=== PATIENT | female | born 1985 | race American Indian/Alaskan Native ===

== ENCOUNTER 2017-01-08 21:53 | Emergency (ER) | payer BC, OTHER ==
[2017-01-08 22:15] VITALS: BP 112/67; PULSE 85; TEMP 98.3; BMI 28.3
[2017-01-08] MEDS ORDERED: IBUPROFEN 400 MG TABLET (FP) PO ONE ×2 (23:19→23:24)
--- NOTE | 2017-01-09 00:21 | PDOC ---
History of Present Illness - General Chief Complaint: Cold Symptoms Stated Complaint: FEVER Time Seen by Provider: 01/08/17 22:33 History Source: Patient Exam Limitations: No Limitations - History of Present Illness Initial Comments: 01/09/17 00:17 Pt. is a 31 y/o female, no PMH who presents to the ED with 3-4 days of cough and sore throat. Patient states that she has not had fevers with this. Denies ear pain. She admits there is a drip down her throat. Her daughter who is 7mo old presents to the ED tonight with similar viral syndromes. Denies weakness, chills, chest pain, shortness of breath, difficulty breathing, nausea, vomiting , diarrhea, frequency, urgency and hematuria. Past History - Travel Traveled outside of the country in the last 30 days: No Close contact w/someone who was outside of country & ill: No - Past Medical History Allergies/Adverse Reactions: Allergies Allergy/AdvReac Type Severity Reaction Status Date / Time No Known Allergies Allergy Verified 01/08/17 22:15 Home Medications: Ambulatory Orders NK [No Known Home Medication] 01/08/17 - Immunization History Immunization Up to Date: Yes - Suicide/Smoking/Psychosocial Hx Smoking History: Never smoked Have you smoked in the past 12 months: No Information on smoking cessation initiated: No Substance Use Type: None Review of Systems - Review of Systems Able to Perform ROS?: Yes Comments:: 01/09/17 00:19 CONSTITUTIONAL: Absent: fever, chills, diaphoresis, generalized weakness, malaise, loss of appetite HEENT: Present: throat pain Absent: rhinorrhea, nasal congestion, throat swelling, difficulty swallowing, mouth swelling, ear pain, eye pain, visual Changes CARDIOVASCULAR: Absent: chest pain, loss of consciousness, palpitations, irregular heart rate, peripheral edema RESPIRATORY: Present: cough Absent: shortness of breath, dyspnea with exertion, orthopnea, wheezing, stridor, hemoptysis GASTROINTESTINAL: Absent: abdominal pain, abdominal distension, nausea, vomiting, diarrhea, constipation, melena, hematochezia GENITOURINARY: Absent: dysuria, frequency, urgency, hesitancy, hematuria, flank pain, genital pain MUSCULOSKELETAL: Absent: myalgia, arthralgia, joint swelling SKIN: Absent: rash, itching, pallor HEMATOLOGIC/IMMUNOLOGIC: Absent: easy bleeding, easy bruising, lymphadenopathy, frequent infections ENDOCRINE: Absent: unexplained weight gain, unexplained weight loss, heat intolerance, cold intolerance NEUROLOGIC: Absent: headache, focal weakness or paresthesias, dizziness, unsteady gait, seizure, mental status changes, bladder or bowel incontinence PSYCHIATRIC: Absent: anxiety, depression, suicidal or homicidal ideation, hallucinations. Is the patient limited Albanian proficient: No *Physical Exam - Vital Signs Last Vital Signs Temp Pulse Resp BP Pulse Ox 98.3 F 85 16 112/67 99 01/08/17 22:00 01/08/17 22:00 01/08/17 22:00 01/08/17 22:00 01/08/17 22:00 - Physical Exam Comments: 01/09/17 00:21 GENERAL: Well developed, well nourished. Awake and alert. No acute distress. Afebrile HEENT: Normocephalic, atraumatic. PERRLA, EOMI. No conjunctival pallor. Sclera are non- icteric. Moist mucous membranes. Oropharynx is clear. R TM with fluid behind the membrane, but no signs of infection. Cone of light intact. dull navarrete in color. L TM; pearly navarrete in color with good cone of light and landmarks NECK: Supple. Full ROM. No JVD. Carotid pulses 2+ and symmetric, without bruits. No thyromegaly. No lymphadenopathy. CARDIOVASCULAR: Regular rate and rhythm. No murmurs, rubs, or gallops. Distal pulses are 2+ and symmetric. PULMONARY: No evidence of respiratory distress. Lungs clear to auscultation bilaterally. No wheezing, rales or rhonchi. ABDOMINAL: Soft. Non-tender. Non-distended. No rebound or guarding. No organomegaly. Normoactive bowel sounds. MUSCULOSKELETAL Normal range of motion at all joints. No bony deformities or tenderness. No CVA tenderness. EXTREMITIES: No cyanosis. No clubbing. No edema. No calf tenderness. SKIN: Warm and dry. Normal capillary refill. No rashes. No jaundice. NEUROLOGICAL: Alert, awake, appropriate. Cranial nerves 2-12 intact. No deficits to light touch and temperature in face, upper extremities and lower extremities. No motor deficits in the in face, upper extremities and lower extremities. Normoreflexic in the upper and lower extremities. Normal speech. Toes are down- going bilaterally. Gait is normal without ataxia. PSYCHIATRIC: Cooperative. Good eye contact. Appropriate mood and affect. ED Treatment Course - ADDITIONAL ORDERS Additional order review: 01/08/17 23:28 Group A Strep Rapid Antigen - Final Throat 01/08/17 23:28 Respiratory Syncytial Virus Ag - Final Nasopharyngeal Swab Influenza Types A,B Antigen (ANDREA) - Final - Final - Medications Given in the ED: ED Medications Discontinued Medications Generic Name Dose Route Start Last Admin Trade Name Freq PRN Reason Stop Dose Admin Ibuprofen 800 mg 01/08/17 23:19 01/08/17 23:31 Motrin - PO 01/08/17 23:20 800 mg ONCE ONE Administration Medical Decision Making - Medical Decision Making 01/09/17 00:39 Pt. is 31 y/o female with no PMH who presents to the ED c/o cough and sore throat x 3-4 days. Will r/o strep, flu, influenza. Will give Motrin for pain relief 01/09/17 02:40 Pt. feeling better with Motrin. All cultures are negative at this time. VVS, patient afebrile. Most likely URI. Will d/c home at this time with instructions for supportive care. *DC/Admit/Observation/Transfer Diagnosis at time of Disposition: URI (upper respiratory infection) Qualifiers: URI type: unspecified viral URI Qualified Code(s): J06.9 - Acute upper respiratory infection, unspecified - Discharge Dispostion Disposition: HOME Condition at time of disposition: Good Admit: No - Referrals Referrals: Adal Lopez MD [Staff Physician] - - Patient Instructions Printed Discharge Instructions: DI for Viral Upper Respiratory Infection -- Adult Additional Instructions: You have an upper respiratory infection. This is usually caused by a virus. It may take 7 -10 days for your symptoms to completely get better. Drink plenty of fluids and get plenty of rest. You may use cough drops, warm water gargles,warm tea for the sore throat. Follow up with your primary care doctor in one week Return to the ED if you have fevers, chills, nausea, vomiting, shortness of breath, or any chances in your symptoms. Print Language: ROMANIAN
--- NOTE | 2017-01-09 00:34 | PDOC ---
*Physical Exam - Vital Signs Last Vital Signs Temp Pulse Resp BP Pulse Ox 98.3 F 85 16 112/67 99 01/08/17 22:00 01/08/17 22:00 01/08/17 22:00 01/08/17 22:00 01/08/17 22:00 - Physical Exam Comments: 01/09/17 00:34 The patient was examined by [LEE Vela] under my direct supervision. I personally evaluated the patient. I concur with the above findings and the plan of care. ED Treatment Course - ADDITIONAL ORDERS Additional order review: 01/08/17 23:28 Group A Strep Rapid Antigen - Final Throat 01/08/17 23:28 Respiratory Syncytial Virus Ag - Final Nasopharyngeal Swab Influenza Types A,B Antigen (ANDREA) - Final - Final - Medications Given in the ED: ED Medications Discontinued Medications Generic Name Dose Route Start Last Admin Trade Name Freq PRN Reason Stop Dose Admin Ibuprofen 800 mg 01/08/17 23:19 01/08/17 23:31 Motrin - PO 01/08/17 23:20 800 mg ONCE ONE Administration
== END 2017-01-09 01:32 | disposition home or self-care (01) ==
LOC: JER 21:53
DX: J06.9 Acute upper respiratory infection, unspecified (principal)
CPT/HCPCS: 87070; 87420; 87430; 87804; 99282-25

== ENCOUNTER 2018-10-19 09:15 | Inpatient (IN) | payer OTHER | END 2018-10-21 14:45 | disposition home or self-care (01) | LOC: JLDR 09:15 → J3W 11:33 ==